=== PATIENT | female | born 1990 | race Caucasian/White ===

== ENCOUNTER 2021-01-02 20:15 | Inpatient (IN) ==
[2021-01-02] MEDS ORDERED: OXYTOCIN 30 UNITS/500 ML BAG IV PRN (20:49)
[2021-01-02] MEDS: LACTATED RINGER'S 1,000 ML IV PRN (20:57)
--- NOTE | 2021-01-02 20:57 | History & Physical Report ---
Date of Service January 02, 2021 Assessment & Plan (1) Supervision of normal first : 30yo at 40.2 weeks GA. Labor 1. Fetus: Reactive NST 2. Labor: progressing. Will AROM after admission. 3. GBS: Negative 4. Vitals: WNL (2) Normal labor: History of Present Illness Primary Care Provider: NO PCP 30yo at 40.2 weeks GA. Presents for labor. Denies VB, or LOF. Good FM. uncomplicated to date. Initial OB Labs 06/01/20 Blood Type & RH A positive Antibody Screen negative HCT/HGB 39.4/13.1 Platelets 320 Pap Test Chlamydia negative Gonorrhea negative Rubella immune RPR non-reactive Urine Culture/Screen HBsAg negative HIV negative MCV 93.0 Ultrasound 24-28 Week OB Labs 09/25/20 HCT/HGB 37.1/12.6 Diabetes Screen (1hr) 114 2HR GTT (if screen abnormal) Antibody Screen Urine Culture/Screen Genetic OB Labs 06/01/20 CF negative SMA negative Panorama Low Risk Quad Screen MASFP screen negative Nuchal Translucency Allergies Allergy/AdvReac Type Severity Reaction Status Date / Time No Known Allergies Allergy Verified 12/27/20 16:15 Home Medications Medication Instructions Recorded Confirmed Type prenat.vits,lizzie,cuh-poay-ypleu 1 tab PO DAILY 11/16/20 01/02/21 History Patient History Medical History (Updated 01/02/21 @ 20:55 by Brent Hernandez MD) Patient denies significant medical history Surgical History S/P breast augmentation Family History (Updated 11/16/20 @ 14:14 by Sujatha Jordan) Father Diabetes Denies family history of Ovarian cancer Breast cancer Colorectal cancer Social History (Updated 11/16/20 @ 14:16 by Sujatha Jordan) Smoking Status: Never smoker Hx Alcohol Use: No Hx Substance Use: No Preferred Language: Turkmen Communication Ability: Effective Nutrition Manager Required: No Beliefs That Will Affect Care: None marital status: marital status details: Sergey Egankristie (29) [phone] Current Living Situation: Spouse Current Living Situation Comment: and a dog current occupational status: unemployed Other Information That Helps Us Care for You: No Feels Safe at Home: Yes Safety Concerns: Feels Safe At This Time Assistive Devices: None Physical Exam Constitutional: WD/WN, vitals as above Psychiatric: A+Ox3, euthymic affect Genitourinary: OB Exam Abdomen: + vertex OB Exam Monitor Tracing: + external FHT monitor used, + external uterine monitor used, + category I and + normal FHT variability; no early decelerations present, no late decelerations present and no variable decelerations Results & Data ([facility]) Vital Signs (Past 12 Hours) Vital Signs Temp Pulse Resp BP 01/02/21 20:31 37.0 C 69 16 116/65 01/02/21 20:27 37.0 C 69 16 116/65 Coding Level of Care Code None Diagnoses Supervision of normal first Z34.00 Normal labor O80; Z37.9
[2021-01-02 21:21] LABS: Hematocrit (blood only) 39.6 % (37-47); Hemoglobin 13.4 g/dL (12.0-16.0); Mean Corpuscular Hemoglobin 31.5 pg (25-34); Mean Corpuscular Hgb Conc 33.8 g/dL (32-36); Mean Platelet Volume 11.4 fL (7.4-10.4); Platelet Count 207 K/uL (130-400); RDW Coefficient of Variation 14.5 % (11.5-14.5); RDW Standard Deviation 48.8 fL (36.4-46.3); Red Blood Count 4.26 M/uL (4.2-5.4); White Blood Count 15.92 K/uL (4.8-10.8)
--- NOTE | 2021-01-02 21:30 | Anesthesiology Consultation ---
Date of Service January 02, 2021 Assessment & Plan Chart Review Chart Review: Acceptable Risk for Surgery, Patient NOT seen in Pre Admission Testing and Acceptable Risk for Labor Epidural Consults Requested none ASA ASA2 Proposed Anesthesia Anesthesia Type: Labor Epidural and CSE History Height/Weight Height: 5 ft 2 in Weight: 58.06 kg Allergies Allergy/AdvReac Type Severity Reaction Status Date / Time No Known Allergies Allergy Verified 12/27/20 16:15 Medications Home Medications Medication Instructions Recorded Confirmed Last Taken prenat.vits,lizzie,kzv-dltp-yywfe 1 tab PO DAILY 11/16/20 01/02/21 01/02/21 Active Medications Generic Name Dose Route Start Last Admin Trade Name Freq PRN Reason Stop Dose Admin Lactated Ringer's 1,000 mls @ 125 mls/hr 01/02/21 20:49 01/02/21 20:57 Lr IV 01/04/21 20:48 999 mls/hr .Q8H PRN Administration L&D Protocol Protocol Past Medical History Medical History Patient denies significant medical history Exercise / Class Metabolic Activity II 4-5 Yardwork/Stairs/Walk up hill Past Family History Family History Father Diabetes Denies family history of Ovarian cancer Breast cancer Colorectal cancer Past Surgical History Surgical History S/P breast augmentation Past Anesthesia History No Hx of Anesthesia Complications and No Family Hx of Anesthesia Complications History of PONV No Hx of PONV and No Hx of Motion Sickness Social History Smoking Status: Never smoker Hx Alcohol Use: No Hx Substance Use: No Physical Exam Vital Signs Last Vital Signs Temp 37.0 C 01/02/21 20:31 Pulse 69 01/02/21 20:31 Resp 16 01/02/21 20:31 BP 116/65 01/02/21 20:31 Testing Laboratory Results 01/02/21 21:05
[2021-01-02] MEDS ORDERED: NALOXONE HCL 1 MG in SODIUM CHLORIDE 0.9% 1000ML 1,000 ML IV PRN (22:05)
[2021-01-02] MEDS ORDERED: diphenhydrAMINE 50 MG/ML VIAL IV PRN (22:05)
[2021-01-02] MEDS ORDERED: ONDANSETRON INJ 2 MG/ML 2 ML VIAL IV PRN (22:05)
[2021-01-02] MEDS ORDERED: NALOXONE HCL 0.4 MG/1 ML VIAL/CARP IV PRN (22:05)
[2021-01-02] MEDS ORDERED: PROMETHAZINE HCL 25 MG in SODIUM CHLORIDE 0.9% 50 ML IV PRN (22:05)
[2021-01-02] MEDS ORDERED: ePHEDrine sulfate 50 MG/ML AMP IV PRN (22:05)
[2021-01-02] MEDS: fentaNYL 2MCG/ML ROPIVACAINE 1.25MG/ML 100 ML BAG EPI PRN (22:07)
[2021-01-02] MEDS ORDERED: SODIUM CHLORIDE 0.9% INJ 10 ML VIAL ONE (22:09)
[2021-01-02] MEDS ORDERED: fentaNYL citrate 100 MCG/2 ML VIAL ONE (22:09)
[2021-01-02] MEDS ORDERED: ePHEDrine sulfate 50 MG/ML AMP ONE (22:09)
[2021-01-02] MEDS ORDERED: BUPIVACAINE 0.25% 30 ML VIAL ONE (22:09)
[2021-01-02] MEDS ORDERED: fentaNYL 2MCG/ML ROPIVACAINE 1.25MG/ML 100 ML BAG EPI ONE (22:10)
[2021-01-03] MEDS: LACTATED RINGER'S 1,000 ML IV PRN ×2 (00:31→07:57)
[2021-01-03] MEDS: fentaNYL 2MCG/ML ROPIVACAINE 1.25MG/ML 100 ML BAG EPI PRN (07:04)
[2021-01-03] MEDS ORDERED: OXYTOCIN 30 UNITS/500 ML BAG IV PRN ×2 (10:04→11:30)
[2021-01-03] MEDS ORDERED: DIPHTHERIA/TETANUS/PERTUSSIS 0.5 ML SYR/VIAL IM ONE (11:30)
[2021-01-03] MEDS ORDERED: HYDROCORTISONE ACETATE 25 MG SUPP PR PRN (11:30)
[2021-01-03] MEDS ORDERED: BENZOCAINE 20% AER SPR 82.5 GM CAN EXT PRN (11:30)
[2021-01-03] MEDS ORDERED: oxyCODONE/ACETAMINOPHEN 5mg/325mg TAB PO PRN (11:30)
[2021-01-03] MEDS ORDERED: SUPERCREAM 0.870% 15 GM JAR EXT PRN (11:30)
--- NOTE | 2021-01-03 12:32 | Anesthesia Procedure Note ---
Date of Service January 03, 2021 Anesthesia Post Epidural Note Vital Signs Vital Signs: Temp Pulse Resp BP Pulse Ox 36.8 C 98 H 18 119/54 L 96 01/03/21 11:20 01/03/21 12:20 01/03/21 12:25 01/03/21 12:20 01/03/21 11:03 Notes Mental Status: alert / awake / arousable and participated in evaluation Patient Amnestic to Procedure: No Nausea / Vomiting: adequately controlled Pain: adequately controlled Airway Patency, RR, SpO2: stable & adequate BP & HR: stable & adequate Hydration State: stable & adequate Neuraxial Anesthesia: was administered and sensory block is resolving Anesthetic Complications: no major complications apparent and Pt Satisfied with anesthetic care Epidural: Removed without complications and With tip intact
[2021-01-03] MEDS: ACETAMINOPHEN 325 MG TAB PO PRN (14:01)
--- NOTE | 2021-01-03 14:29 | Delivery Summary ---
Vaginal Delivery Summary Date of Service January 03, 2021 Patient is a 30-year-old female 1 para 0 who presents at 40+ weeks in active labor. Membranes had ruptured spontaneously for clear fluid. She received effective epidural analgesia. She progressed to full dilation and pushed well over intact perineum. After , a perineal tear occurred and the infant delivered easily after that. Shoulders also delivered easily and the was placed on the mother's abdomen for further attention and drying. The infant was vigorous upon delivery. The placenta was expressed intact with a three-vessel cord. A third partial third-degree perineal laceration was repaired with 2-0 chromic and 3-0 chromic in the usual fashion. Rectal exam post repair was intact and no sutures were palpable. Estimated blood loss is 250 cc. Mother and were doing well after delivery. Vaginal Delivery Summary and 3rd Degree LAC [facility] [place] Charge Delivery Type Details: and 3rd Degree LAC
[2021-01-03] MEDS: IBUPROFEN 600 MG TAB PO PRN (16:52)
[2021-01-03] MEDS: DOCUSATE SODIUM 100 MG CAP PO SCH (20:35)
[2021-01-04] MEDS: IBUPROFEN 600 MG TAB PO PRN ×2 (05:35→09:08)
--- NOTE | 2021-01-04 06:51 | Obstetrical Progress Note ---
Date of Service January 04, 2021 Assessment & Plan (1) care following vaginal delivery: S/p Day 1 - Feels well today. Eating well, voiding well, ambulating well. - Pain well-controlled with ibuprofen 600mg Q4H PRN. - Vital signs reviewed and WNL. - Hemoglobin reviewed. 13.4 (antepartum) - Blood Type: A+, antibody negative, GBS negative, Rubella Immune, COVID-19 negative - Continue routine care: encourage ambulation, monitor and control pain with Motrin PRN, continue regular OB diet, monitor lochia - Encourage breast feeding. - After discharge, will have 6-wk follow-up with Dr. Magana Admission and Anticipated Discharge Date Admission Date: January 02, 2021 Supervising Physician Co-Signing Physician Notes Resident Physician Supervision Note: I interviewed and examined the patient. Discussed with Dr. Voss and agree with findings and plan as documented in the note. Any exceptions or clarifications are listed here: [None] Documented By: Estefani Deleon MD, FACOG Subjective HPI Daniel is a 30 y/o female who is PPD 1 spontaneous vaginal delivery at 40 2/7 weeks. She reports feeling well overall this morning. No abdominal cramping and mild pain well managed on analgesics. Voiding well. Tolerating meals overnight without difficulty. Patient has been able to ambulate some. passing gas and no bowel movement. Has persistent lochia with some improvement this morning. Currently . Review of Systems Review of Systems: ROS Denies fever or chills. Denies shortness of breath or cough. Denies chest pain. Denies breast pain. Denies dysuria. Denies leg pain or leg swelling. Physical Exam Physical Exam: PE General: Alert, oriented. No acute distress. Cardiac: Regular rate and rhythm. No murmurs. Respiratory: Clear to auscultation bilaterally a/p, no wheezes/rales/rhonchi. No increased work of breathing. Symmetrical chest rise. No respiratory distress. Abdomen: Soft, nontender, nondistended. Bowel sounds present. Uterus: Uterine fundus firm, palpable at umbilicus. Lower Extremities: No lower extremity edema or swelling. No deep calf pain. Qiana's negative bilaterally. Results & Data ([facility]) Vital Signs (Past 12 Hours) Vital Signs Temp Pulse Resp BP Pulse Ox 01/04/21 03:00 36.6 C 79 16 121/83 100 01/03/21 23:35 36.6 C 85 16 113/75 98 01/03/21 19:40 37 C 95 H 16 136/83 99 Resident Activity Tracking Resident Involvement: Resident Care Provided Care Provided: Adult Hospital Medicine
[2021-01-04] MEDS: PRENATAL VITAMIN 1 TAB PO SCH (08:32)
[2021-01-04] MEDS: ACETAMINOPHEN 325 MG TAB PO PRN (08:32)
[2021-01-04] MEDS: DOCUSATE SODIUM 100 MG CAP PO SCH ×2 (08:32→20:42)
[2021-01-04 08:41] LABS: Hematocrit (blood only) 32.7 % (37-47); Hemoglobin 10.9 g/dL (12.0-16.0); Mean Corpuscular Hemoglobin 31.1 pg (25-34); Mean Corpuscular Hgb Conc 33.3 g/dL (32-36); Mean Corpuscular Volume 93.2 fL (80-100); Mean Platelet Volume 11.1 fL (7.4-10.4); Platelet Count 213 K/uL (130-400); RDW Coefficient of Variation 14.9 % (11.5-14.5); RDW Standard Deviation 50.7 fL (36.4-46.3); Red Blood Count 3.51 M/uL (4.2-5.4); White Blood Count 12.97 K/uL (4.8-10.8)
[2021-01-04] MEDS ORDERED: bisacodyL 5 MG TABEC PO SCH (20:00)
--- NOTE | 2021-01-05 06:09 | Obstetrical Progress Note ---
Date of Service <Joshua Sagastume MD - Last Filed: 01/05/21 07:54> January 05, 2021 Assessment & Plan <Joshua Sagastume MD - Last Filed: 01/05/21 07:54> (1) care following vaginal delivery: Daniel is a 30 y/o female who is now PPD #2 following at 40- 2/7. - Feels well today. Eating well, voiding well, ambulating well. - Pain well controlled with ibuprofen 600mg Q4H PRN. - Routine PPD care -- OOB, ambulation, diet, spa consultant p.r.n. - Anticipate d/c today, pending pediatrics - After discharge will have [address] Magana Subjective <Joshua Sagastume MD - Last Filed: 01/05/21 07:54> Daniel is a 30 y/o female who is now PPD #2 following at 40-2/7. Reports feeling well overall this morning. Endorses mild abdominal cramping wth pain well managed on analgesics. Voiding without difficulty. Tolerating meals well and able to ambulate some. Some persistent lochia with some improvement this morning. Breast feeding. Review of Systems Denies fever, chills, sweats Denies shortness of breath, difficulty breathing, chest pain, palpitations, chest pressure. Denies breast pain. Denies dysuria. Denies headache or changes in vision. Physical Exam <Joshua Sagastume MD - Last Filed: 01/05/21 07:54> General: Alert, oriented. No acute distress. Cardiac: Regular rate and rhythm, no murmurs/rubs/gallops. Respiratory: Clear to auscultation bilaterally a/p, no wheezes/rales/rhonchi. No increased work of breathing. Symmetrical chest rise. No respiratory distress. Abdomen: Soft, nontender, nondistended. Bowel sounds present. Uterus: Uterine fundus firm, palpable 2 cm below umbilicus. Lower Extremities: No lower extremity edema or swelling. No deep calf pain. Qiana's negative bilaterally. Results & Data ([facility]) <Joshua Sagastume MD - Last Filed: 01/05/21 07:54> Vital Signs (Past 12 Hours) Vital Signs Temp Pulse Resp BP Pulse Ox 06/19/21 00:00 16 01/04/21 23:02 37.1 C 91 H 16 114/76 97 01/04/21 20:40 16 01/04/21 19:51 36.9 C 91 H 16 121/78 94 <Lakshmi Coronado MD, FACOG - Last Filed: 01/05/21 08:26> Co-Signing Physician Notes Resident Physician Supervision Note: I was present with Dr. Sagastume during the history and exam. I discussed the case with the resident and agree with the findings and plan as documented in the note. Any exceptions or clarifications are listed here: Patient doing well. Ready for d/c home. Instructions reviewed. She verbalized understanding. FF 2 down, , RH pos, RI. Documented By: Lakshmi Coronado MD, FACOG Resident Activity Tracking <Joshua Sagastume MD - Last Filed: 01/05/21 07:54> Resident Involvement: Resident Care Provided Care Provided: Adult Hospital Medicine and OB Delivery
[2021-01-05 07:00] LABS: Hematocrit (blood only) 31.2 % (37-47); Hemoglobin 10.1 g/dL (12.0-16.0)
[2021-01-05] MEDS: IBUPROFEN 600 MG TAB PO PRN (08:48)
[2021-01-05] MEDS: DOCUSATE SODIUM 100 MG CAP PO SCH (08:48)
[2021-01-05] MEDS: PRENATAL VITAMIN 1 TAB PO SCH (08:48)
== END 2021-01-05 12:33 | disposition home or self-care (01) | DRG 768 ==
LOC: OPB 20:15 → 4S1 20:17 → 4S2 01-03 16:41